=== PATIENT | male | born 1940 | race Caucasian/White ===

== ENCOUNTER 2017-09-15 05:27 | Inpatient (IN) ==
[2017-09-15] MEDS ORDERED: VANCOMYCIN INJ 1,000 MG in SODIUM CHLORIDE 0.9% 250 ML IV ONE (06:00)
[2017-09-15] MEDS ORDERED: TRANEXAMIC ACID 1,000 MG/10 ML VIAL IV ONE ×2 (06:40→07:14)
[2017-09-15] MEDS ORDERED: BACITRACIN OINT 0.9 GM PACK TOP ONE (06:40)
[2017-09-15] MEDS ORDERED: VANCOMYCIN 1,000 MG VIAL ONE (07:09)
[2017-09-15] MEDS ORDERED: ceFAZolin 1,000 MG VIAL ONE (07:09)
[2017-09-15] MEDS ORDERED: SODIUM CHLORIDE 0.9% 50 ML IV ONE (07:10)
[2017-09-15] MEDS ORDERED: LACTATED RINGERS 1,000 ML IV SCH (07:30)
[2017-09-15] MEDS ORDERED: MIDAZOLAM 2 MG/2 ML VIAL ONE ×2 (07:41→10:47)
[2017-09-15] MEDS ORDERED: ROPIVACAINE 0.5% 30 ML VIAL ONE ×2 (07:41→10:25)
[2017-09-15] MEDS ORDERED: fentaNYL 100 MCG/2 ML VIAL ONE ×2 (07:42→10:47)
[2017-09-15] MEDS ORDERED: CARBIDOPA/LEVODOPA 25-100 MG TABLET PO PRN (08:45)
[2017-09-15] MEDS ORDERED: METOPROLOL SUCCINATE XL 25 MG TABLET PO PRN (08:45)
[2017-09-15] MEDS ORDERED: oxyCODONE IR 5 MG TABLET PO PRN ×2 (08:46)
[2017-09-15] MEDS ORDERED: diphenhydrAMINE CAP 25 MG CAPSULE PO PRN (08:46)
[2017-09-15] MEDS ORDERED: HYDROmorphone 2 MG/1 ML VIAL IV PRN ×2 (08:46)
[2017-09-15] MEDS ORDERED: ONDANSETRON 4 MG/2 ML VIAL IV PRN (08:46)
[2017-09-15] MEDS ORDERED: PROPOFOL 200 MG/20 ML VIAL IV ONE (10:47)
[2017-09-15] MEDS ORDERED: SODIUM CHLORIDE 0.9% 250 ML IV ONE (10:48)
[2017-09-15] MEDS ORDERED: LACTATED RINGERS 1,000 ML IV ONE (10:48)
[2017-09-15] MEDS ORDERED: KETAMINE 500 MG/10 ML VIAL ONE (10:48)
[2017-09-15] MEDS ORDERED: SODIUM CHLORIDE 0.9% 100 ML IV ONE (10:48)
[2017-09-15] MEDS ORDERED: ACETAMINOPHEN 1,000 MG/100 ML VIAL IV ONE (11:28)
[2017-09-15] MEDS: LACTATED RINGERS 1,000 ML IV SCH (11:52)
[2017-09-15] MEDS: TAMSULOSIN 0.4 MG CAPSULE PO SCH (12:16)
[2017-09-15] MEDS: DOCUSATE SODIUM 100 MG CAPSULE PO SCH ×2 (12:17→20:38)
[2017-09-15] MEDS: ACETAMINOPHEN 500 MG TABLET PO SCH ×3 (12:17→23:58)
[2017-09-15] MEDS: KETOROLAC 15 MG/1 ML VIAL IV SCH ×3 (12:18→23:57)
[2017-09-15] MEDS: CITALOPRAM 20 MG TABLET PO SCH (12:18)
[2017-09-15] MEDS ORDERED: INFLUENZA VIRUS VACCINE 0.5 ML SYRINGE IM ONE (12:41)
[2017-09-15 13:04] LABS: Basophils % 0.6 % (0.0-0.8); Eosinophils # 0.2 10*3/uL (0.0-0.87); Hemoglobin 13.5 GM/DL (14.0-18.0); Immature Granulocytes % 0.4 %; Immature Granulocytes Absolute 0.02 #; Lymphocytes # 1.4 10*3/uL (1.4-4.0); Lymphocytes % 28.4 % (21.2-54.2); Mean Corpuscular HGB Conc 34.6 GM/DL (32-36); Mean Corpuscular Hemoglobin 34 PG (27-34); Mean Corpuscular Volume 98.5 FL (87-102); Mean Platelet Volume 9.8 FL (9.6-12.0); Monocytes # 0.5 10*3/uL (0.11-0.8); Monocytes % 9.3 % (1.7-12.7); Neutrophils # 2.9 10*3/uL (1.4-7.4); Neutrophils % 58.3 % (38.7-73.9); Platelet Count 145 T/CUMM (130-400); Red Blood Count 3.96 MC/CUMM (3.8-5.5); Red Cell Distribution Width 12.8 % (9.3-17.3)
[2017-09-15 13:36] LABS: Calcium 8.2 MG/DL (8.5-10.1); Osmolality,Calculated 282.1 MOS/KG (273-304); Potassium 3.9 MMOL/L (3.5-5.1)
[2017-09-15] MEDS: ceFAZolin 2,000 MG in PREMIX 1 EACH IV SCH (18:36)
[2017-09-15] MEDS: traZODone 50 MG TABLET PO SCH (20:38)
[2017-09-15] MEDS: cloNIDine 0.1 MG TABLET PO SCH (20:38)
[2017-09-16] MEDS: ceFAZolin 2,000 MG in PREMIX 1 EACH IV SCH (00:33)
[2017-09-16] MEDS: LACTATED RINGERS 1,000 ML IV SCH ×2 (00:33→10:59)
[2017-09-16] MEDS ORDERED: ACETAMINOPHEN 325 MG TABLET PO PRN (08:47)
[2017-09-16 09:56] LABS: Potassium 4.1 MMOL/L (3.5-5.1)
[2017-09-16 09:59] LABS: Basophils % 0.3 % (0.0-0.8); Eosinophils # 0.2 10*3/uL (0.0-0.87); Hematocrit 33.5 VOL% (42.0-52.0); Hemoglobin 11.7 GM/DL (14.0-18.0); Immature Granulocytes % 0.9 %; Immature Granulocytes Absolute 0.06 #; Lymphocytes # 1.3 10*3/uL (1.4-4.0); Lymphocytes % 19.4 % (21.2-54.2); Mean Corpuscular HGB Conc 34.9 GM/DL (32-36); Mean Corpuscular Hemoglobin 34 PG (27-34); Mean Corpuscular Volume 96.8 FL (87-102); Mean Platelet Volume 10.1 FL (9.6-12.0); Monocytes % 16.2 % (1.7-12.7); Neutrophils # 3.9 10*3/uL (1.4-7.4); Neutrophils % 60.2 % (38.7-73.9); Platelet Count 137 T/CUMM (130-400); Red Blood Count 3.46 MC/CUMM (3.8-5.5); Red Cell Distribution Width 12.7 % (9.3-17.3); White Blood Count 6.4 T/CUMM (4-12)
[2017-09-16] MEDS: FONDAPARINUX 2.5 MG/0.5 ML SYRINGE SUBCUT SCH (10:11)
[2017-09-16] MEDS: DOCUSATE SODIUM 100 MG CAPSULE PO SCH ×2 (10:13→20:44)
[2017-09-16] MEDS: CITALOPRAM 20 MG TABLET PO SCH (10:13)
[2017-09-16] MEDS: TAMSULOSIN 0.4 MG CAPSULE PO SCH (10:13)
[2017-09-16 11:08] LABS: Eosinophils 1 % (0-10); Hypochromasia 1+; Lymphocytes 22 % (20-55); Microcytosis 1+; Platelet Estimate Decreased; Segmented Neutrophils 66 % (50-85); Total Cells Counted 100
[2017-09-16] MEDS: ACETAMINOPHEN 500 MG TABLET PO SCH (11:20)
[2017-09-16] MEDS: KETOROLAC 15 MG/1 ML VIAL IV SCH (11:20)
[2017-09-16] MEDS: CELECOXIB 200 MG CAPSULE PO SCH (14:38)
[2017-09-16] MEDS: traZODone 50 MG TABLET PO SCH (20:44)
[2017-09-16] MEDS: cloNIDine 0.1 MG TABLET PO SCH (20:44)
[2017-09-17 05:00] LABS: Basophils % 0.3 % (0.0-0.8); Eosinophils # 0.6 10*3/uL (0.0-0.87); Eosinophils % 9.5 % (0.00-10.9); Hematocrit 31.5 VOL% (42.0-52.0); Immature Granulocytes % 0.8 %; Immature Granulocytes Absolute 0.05 #; Lymphocytes # 1.7 10*3/uL (1.4-4.0); Lymphocytes % 28.9 % (21.2-54.2); Mean Corpuscular HGB Conc 34.9 GM/DL (32-36); Mean Corpuscular Hemoglobin 34 PG (27-34); Mean Corpuscular Volume 97.8 FL (87-102); Mean Platelet Volume 9.9 FL (9.6-12.0); Monocytes # 0.7 10*3/uL (0.11-0.8); Monocytes % 12.5 % (1.7-12.7); Neutrophils # 2.8 10*3/uL (1.4-7.4); Platelet Count 125 T/CUMM (130-400); Red Blood Count 3.22 MC/CUMM (3.8-5.5); Red Cell Distribution Width 12.8 % (9.3-17.3); White Blood Count 5.9 T/CUMM (4-12)
[2017-09-17] MEDS: CELECOXIB 200 MG CAPSULE PO SCH (09:46)
[2017-09-17] MEDS: CITALOPRAM 20 MG TABLET PO SCH (09:46)
[2017-09-17] MEDS: MAGNESIUM HYDROXIDE SUSP 30 ML UDCUP PO PRN ×2 (09:48→16:59)
[2017-09-17] MEDS: TAMSULOSIN 0.4 MG CAPSULE PO SCH (09:48)
[2017-09-17] MEDS: FONDAPARINUX 2.5 MG/0.5 ML SYRINGE SUBCUT SCH (09:51)
[2017-09-17] MEDS ORDERED: BISACODYL 10 MG SUPP RECTAL PRN (16:11)
[2017-09-17] MEDS: DOCUSATE SODIUM 100 MG CAPSULE PO SCH ×2 (16:58→20:19)
[2017-09-17] MEDS: cloNIDine 0.1 MG TABLET PO SCH (20:20)
[2017-09-17] MEDS: traZODone 50 MG TABLET PO SCH (20:20)
[2017-09-18 05:49] LABS: Basophils % 0.5 % (0.0-0.8); Eosinophils # 0.4 10*3/uL (0.0-0.87); Eosinophils % 7.4 % (0.00-10.9); Hematocrit 32.2 VOL% (42.0-52.0); Immature Granulocytes % 0.5 %; Immature Granulocytes Absolute 0.03 #; Lymphocytes # 1.5 10*3/uL (1.4-4.0); Lymphocytes % 25.9 % (21.2-54.2); Mean Corpuscular HGB Conc 34.2 GM/DL (32-36); Mean Corpuscular Hemoglobin 34 PG (27-34); Mean Corpuscular Volume 98.2 FL (87-102); Mean Platelet Volume 10.1 FL (9.6-12.0); Monocytes # 0.6 10*3/uL (0.11-0.8); Monocytes % 10.5 % (1.7-12.7); Neutrophils # 3.1 10*3/uL (1.4-7.4); Neutrophils % 55.2 % (38.7-73.9); Platelet Count 137 T/CUMM (130-400); Red Blood Count 3.28 MC/CUMM (3.8-5.5); Red Cell Distribution Width 12.7 % (9.3-17.3); White Blood Count 5.6 T/CUMM (4-12)
[2017-09-18] MEDS: CELECOXIB 200 MG CAPSULE PO SCH (10:01)
[2017-09-18] MEDS: TAMSULOSIN 0.4 MG CAPSULE PO SCH (10:02)
[2017-09-18] MEDS: CITALOPRAM 20 MG TABLET PO SCH (10:02)
[2017-09-18] MEDS: FONDAPARINUX 2.5 MG/0.5 ML SYRINGE SUBCUT SCH (10:03)
[2017-09-18] MEDS: DOCUSATE SODIUM 100 MG CAPSULE PO SCH (10:17)
[2017-09-18 11:47] VITALS: BP 137/92
== END 2017-09-18 14:10 | disposition swing bed (61) | DRG 470 ==
LOC: N.OR 05:27 → N.SDSINP 05:39 → N.3E 11:23
PROVIDERS: ADMIT Orthopaedic Surgery; ATTEND Orthopaedic Surgery